=== PATIENT | female | born 1975 | race Caucasian/White ===

== ENCOUNTER 2017-05-16 01:39 | Emergency (ER) | payer OTHER ==
[~2017-05-16] VITALS: Ht 167.6 cm; Wt 86.2 kg
[~2017-05-16 01:39] MED LIST: ACETAMINOPHEN-1 EAC1 ORAL; ZOFRAN4 MG ORAL
[2017-05-16 02:06] VITALS: BP 140/91
[2017-05-16] MEDS ORDERED: NKM (02:10)
[2017-05-16] MEDS ORDERED: Ketorolac 30mg Inj IV ONE (02:30)
[2017-05-16 03:15] LABS: BASOPHILS % (AUTO) 0.9 % (0.0-2.0); LYMPHOCYTES % (AUTO) 28.4 % (20.0-45.0); MEAN CORPUSCULAR HEMOGLOBIN 32.2 PG (27.0-31.0); MEAN CORPUSCULAR HGB CONC 34.6 G/DL (32.0-36.0); MEAN CORPUSCULAR VOLUME 93 FL (80-99); MEAN PLATELET VOLUME 6.4 FL (6.5-10.1); MONOCYTES % (AUTO) 7.8 % (1.0-10.0); PLATELET COUNT 329 K/UL (150-450); RED BLOOD COUNT 4.55 M/UL (4.20-5.40); RED CELL DISTRIBUTION WIDTH 10.7 % (11.6-14.8)
[2017-05-16 03:26] LABS: APPEARANCE,URINE SLIGHTLY CLOUDY
[2017-05-16 03:27] LABS: KETONES,URINE NEGATIVE (NEGATIVE); LEUKOCYTE ESTERASE ,URINE 1+ (NEGATIVE); NITRITE,URINE NEGATIVE (NEGATIVE); PROTEIN,URINE 2+ (NEGATIVE); UROBILINOGEN,URINE NORMAL MG/DL (0.0-1.0)
[2017-05-16 03:28] LABS: BACTERIA,URINE FEW /HPF; RBC,URINE TNTC /HPF (0 - 2); SQUAMOUS EPITHELIAL CELL,UR MODERATE /LPF (NONE/OCC)
[2017-05-16 03:29] LABS: ALANINE AMINOTRANSFERASE 10 U/L (3-33); ALBUMIN/GLOBULIN RATIO 1.4 (1.0-2.7); ANION GAP 15 (5-15); ASPARTATE AMINO TRANSFERASE 14 U/L (5-40); CARBON DIOXIDE 24 mEQ/L (20-30); CHLORIDE 102 mEQ/L (98-107); CREATININE 0.7 mg/dL (0.5-0.9); GLOMERULAR FILTRATION RATE > 60 mL/min (>60); HEMOLYSIS 5; LIPASE 25 U/L (< 60); POTASSIUM 4.2 mEQ/L (3.4-4.9); SODIUM 141 mEQ/L (135-145); TOTAL PROTEIN 7.3 g/dL (6.6-8.7)
[2017-05-16] MEDS ORDERED: Morphine Sulfate 4mg/ml Inj IVP ONE (03:45)
[2017-05-16 03:49] LABS: BILIRUBIN,DIRECT 0.2 mg/dL (0.1-0.3)
--- NOTE | 2017-05-16 03:51 | Emergency Room Report ---
History of Present Illness General Chief Complaint: Abdominal Pain Source: Patient Present Illness HPI Is a 41-year-old female who is breast-feeding. She presents with chief complaint of epigastric pain for the last few hours. No radiation. Gnawing sensation. 3 loose stool. No diarrhea. Nauseous but no vomiting. Denies any fever or chills. Pain is 8/10. Allergies: Coded Allergies: ERYTHROMYCIN BASE (Unverified Adverse Reaction, Intermediate, severe stomach reaction, 05/16/17) SULFA (SULFONAMIDE ANTIBIOTICS) (Unverified Adverse Reaction, Intermediate , rapid heartbeats, 05/16/17) Patient History Past Medical History: see triage record, old chart reviewed Past Surgical History: none Pertinent Family History: none Social History: Denies: smoking Last Menstrual Period: now Now: No Immunizations: other Reviewed Nursing Documentation: PMH: Agreed, PSxH: Agreed Nursing Documentation-PMH Past Medical History: No History, Except For Hx Cardiac Problems: No Hx Cancer: No Hx Gastrointestinal Problems: Yes - GASTRIC POLYP Hx Neurological Problems: No Review of Systems Eye: Denies: eye pain, blurred vision ENT: Denies: ear pain, nose congestion, throat swelling Respiratory: Denies: cough, shortness of breath Cardiovascular: Denies: chest pain, palpitations Gastrointestinal: Reports: abdominal pain, Denies: diarrhea, nausea, vomiting Musculoskeletal: Denies: back pain, joint pain Skin: Denies: rash Neurological: Denies: headache, numbness Endocrine: Denies: increased thirst, increased urine Hematologic/Lymphatic: Denies: easy bruising All Other Systems: negative except mentioned in HPI Physical Exam Vital Signs Date Time Temp Pulse Resp B/P (MAP) Pulse Ox O2 Delivery O2 Flow Rate FiO2 05/16/17 02:06 98.1 89 16 140/91 99 Room Air vitals normal Sp02 EP Interpretation: reviewed, normal General Appearance: well appearing, no apparent distress, alert Head: normocephalic, atraumatic Eyes: bilateral eye PERRL, bilateral eye EOMI ENT: hearing grossly normal, normal pharynx Neck: full range of motion, supple, no meningismus Respiratory: chest non-tender, lungs clear, normal breath sounds Cardiovascular #1: regular rate, rhythm, no murmur Gastrointestinal: normal bowel sounds, no mass, no organomegaly, no bruit, non- distended, tenderness - Mild epigastric Musculoskeletal: back normal, gait/station normal, normal range of motion Psychiatric: mood/affect normal Skin: warm/dry Medical Decision Making Diagnostic Impression: Primary Impression: Abdominal pain Qualified Codes: R10.13 - Epigastric pain ER Course Patient was abdominal pain. No evidence of obstruction. No evidence of acute abdomen. We'll discharge home. Patient presents with abdominal pain. Unknown etiology. She had family history of colon cancer in get colonoscopy every 2-3 years. Last one was to have years ago. Was negative. No evidence of acute abdomen or obstruction. I did a bedside ultrasound her gallbladder looks fine. No evidence of any gallstone. Negative Fletcher sign. Lab Results Impression labs normal CT/MRI/US Diagnostic Results CT/MRI/US Diagnostic Results : Imaging Test Ordered: CT abdomen and pelvis Impression negative per radiologist Last Vital Signs Date Time Temp Pulse Resp B/P (MAP) Pulse Ox O2 Delivery O2 Flow Rate FiO2 05/16/17 02:06 98.1 89 16 140/91 99 Room Air Status: improved Disposition: HOME, SELF-CARE Condition: Stable Patient Instructions: Abdominal Pain, Adult Additional Instructions: followup with your DrShira in 7 days. Return if symptom worsen. DENAE REEVES M.D. May 16, 2017 03:51
[2017-05-16 04:41] VITALS: BP 138/85
--- NOTE | 2017-05-16 08:27 | Diagnostic Imaging Report ---
Indication: Abdominal pain Technique: Continuous helical transaxial imaging of the abdomen and pelvis was obtained from the lung bases to the pubic symphysis. No intravenous contrast was administered. Coronal 2-D reformats were also obtained. Total Dose length Product (DLP): [address] Dose Index Volume (CTDIvol): 17.25, 0.15 mGy Comparison: none Findings: Bowel gas pattern is nonspecific. There is no free fluid or free air. No nephrolithiasis or hydronephrosis seen. There are a few hypodensities within the liver nonspecific. Gallbladder is unremarkable. No evidence of acute appendicitis. Uterus and both ovaries noted. Impression: No acute findings appreciated. Hypodensities in the liver nonspecific in nature. Limited evaluation due to the absence of IV and oral contrast [facility] has communicated the preliminary results to the Emergency Department. Their findings are largely concordant with this report. The CT scanner at [facility] is accredited by the [employer] and the scans are performed using dose optimization techniques as appropriate to a performed exam including Automatic Exposure control.
== END 2017-05-16 04:40 | disposition home or self-care (01) ==
LOC: EMR 02:25
DX: R10.13 Epigastric pain (principal); Z88.1 Allergy status to other antibiotic agents; Z88.2 Allergy status to sulfonamides
CPT/HCPCS: 36415; 74176; 80053; 81003; 81025; 82248; 83690; 85025; 96374; 96375; 99284; J1885; J2270; J2405

== ENCOUNTER 2019-03-24 09:26 | Emergency (ER) | payer OTHER ==
[~2019-03-24] VITALS: Ht 167.6 cm; Wt 86.2 kg
[~2019-03-24 09:26] MED LIST changes: +NKM
--- NOTE | 2019-03-24 09:37 | NUR ---
ED Nurse Note: pt walked in to ED due to pain on posterior right knee after she bend it yesterday. per pt, pain gets worse when she extended it. minimal swelling noted. ambulatory at steady gait. AAO x4. respirations even and non-labored noted. will wait for the further order.
--- NOTE | 2019-03-24 10:21 | NUR ---
ED Nurse Note: X-ray at bedside for imaging.
[2019-03-24 10:59] VITALS: BP 130/88
[2019-03-24] MEDS ORDERED: IBUPROFEN600 MG ORAL (11:00)
--- NOTE | 2019-03-24 11:03 | NUR ---
ER DISCHARGE NOTE: Patient is cleared to be discharged per ERMD, pt is aox4, on room air, with stable vital signs. pt was given dc and prescription instructions, pt was able to verbalize understanding, pt id band removed. pt is able to ambulate with steady gait. pt took all belongings.
--- NOTE | 2019-03-24 11:34 | Diagnostic Imaging Report ---
EXAM: XR Right Knee, 3 views CLINICAL HISTORY: PAIN TECHNIQUE: Three views of the right knee. COMPARISON: No relevant prior studies available. FINDINGS: Bones/joints: Unremarkable. No visible displaced fracture. No dislocation. No osseous erosions. Visualized joint spaces appear unremarkable. Soft tissues: Unremarkable. No radiodense foreign bodies. No soft tissue gas lucencies. IMPRESSION: Unremarkable right knee x-rays.
--- NOTE | 2019-03-24 11:59 | Emergency Room Report ---
History of Present Illness General Chief Complaint: Lower Extremity Injury Source: Patient Present Illness HPI 43-year-old female presents ED for evaluation. Complaining of right knee pain. States that when in ocean yesterday when standing in the ocean yesterday she felt a wave pushed against her and felt a pop in her right knee. States she has been experiencing pain to the back of the knee. 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 Throbbing, 7 out of 10, nonradiating. Worse with bending and standing. Walking. Is able to bear weight. Denies any other injuries. No other aggravating relieving factors. Denies any other associated symptoms Allergies: Coded Allergies: ERYTHROMYCIN BASE (Unverified Adverse Reaction, Intermediate, severe stomach reaction, 05/16/17) SULFA (SULFONAMIDE ANTIBIOTICS) (Unverified Adverse Reaction, Intermediate , rapid heartbeats, 05/16/17) Patient History Past Medical History: none Past Surgical History: none Pertinent Family History: none Social History: Denies: smoking, alcohol use, drug use Last Menstrual Period: 02/2019 Now: No Immunizations: UTD Reviewed Nursing Documentation: PMH: Agreed; PSxH: Agreed Nursing Documentation-PMH Past Medical History: No History, Except For Hx Cardiac Problems: No Hx Cancer: No Hx Gastrointestinal Problems: Yes - GASTRIC POLYP Hx Neurological Problems: No Review of Systems All Other Systems: negative except mentioned in HPI Physical Exam Vital Signs Date Time Temp Pulse Resp B/P (MAP) Pulse Ox O2 Delivery O2 Flow Rate FiO2 03/24/19 09:32 98.2 82 15 130/88 (102) 95 Room Air Sp02 EP Interpretation: reviewed, normal General Appearance: no apparent distress, alert, GCS 15, non-toxic Head: normocephalic Eyes: bilateral eye normal inspection, bilateral eye PERRL ENT: normal ENT inspection Neck: normal inspection Respiratory: normal inspection Cardiovascular #1: normal inspection Gastrointestinal: normal inspection Rectal: deferred Genitourinary: no CVA tenderness Musculoskeletal: normal range of motion, tender - R knee posterior. pain with flexion Neurologic: alert, oriented x3, responsive, motor strength/tone normal, sensory intact, speech normal Psychiatric: normal inspection Skin: normal color Lymphatic: no adenopathy Procedures Splinting Splinting : Consent: Verbal Pre-Made Type: CARYN wrap - R knee Pre-Proc Neuro Vasc Exam: normal Post-Proc Neuro Vasc Exam: normal Patient Tolerated: Well Complications: None Medical Decision Making Diagnostic Impression: Primary Impression: Knee pain Qualified Codes: M25.561 - Pain in right knee ER Course Hospital Course 43-year-old F presents to ED complaining of R knee pain Differential diagnoses include: Fracture, dislocation, sprain, contusion Clinical course Patient placed on stretcher. After initial history and physical, I ordered xrays of R knee. patient declined pain meds Xrays read shows no acute fracture/dislocation. placed in caryn wrap discussed findings with patient. Pain is likely ligamentous. No laxity in the joint. Recommend ice, elevation, modified activity. Patient states she does have an orthopedic doctor but will also provide referrals Diagnosis - knee pain Stable and discharged to home with prescription for Motrin. apply ice, keep elevated. weight bear as tolerated. Followup with PMD/ortho. Return to ED if symptoms recur or worsen Other X-Ray Diagnostic Results Other X-Ray Diagnostic Results : X-Ray ordered: R knee # of Views/Limited Vs Complete: 3 View Indication: Pain EP Interpretation: Yes Interpretation: no dislocation, no soft tissue swelling, no fractures Impression: No acute disease Electronically Signed by: Electronically signed by Terrence Almonte MD Last Vital Signs Date Time Temp Pulse Resp B/P (MAP) Pulse Ox O2 Delivery O2 Flow Rate FiO2 03/24/19 10:59 98.2 82 15 130/88 95 Room Air Status: improved Disposition: HOME, SELF-CARE Condition: Stable Scripts Ibuprofen* (MOTRIN*) 600 Mg Tablet 600 MG ORAL Q8H PRN for For Pain, #30 TAB 0 Refills Prov: Terrence Almonte MD 03/24/19 Referrals: Mukesh Escobar MD NON PHYSICIAN (PCP) Patient Instructions: Knee Sprain, [id number] Terrence Almonte MD Mar 24, 2019 11:59
== END 2019-03-24 11:04 | disposition home or self-care (01) ==
LOC: EMR 10:14
DX: M25.561 Pain in right knee (principal); Z88.2 Allergy status to sulfonamides
CPT/HCPCS: 99283